=== PATIENT | male | born 1975 | race Caucasian/White ===

== ENCOUNTER → 2018-06-17 | Outpatient (CLI) | payer OTHER ==
[~2018-06-17] VITALS: Ht 182.9 cm; Wt 127.0 kg
[~2018-06-17] MED LIST: VENTOLIN HFA 1818 GM INH; XARELTO20 MG PO
[2018-06-17 14:48] VITALS: BP 11/66
== END | disposition home or self-care (01) ==
LOC: CATH 12:32
PROVIDERS: Nurse Practitioner Gerontology
DX: I87.393 Chronic venous hypertension (idiopathic) with other complications of bilateral lower extremity (principal); I87.2 Venous insufficiency (chronic) (peripheral); J45.909 Unspecified asthma, uncomplicated; Z98.890 Other specified postprocedural states; Z86.718 Personal history of other venous thrombosis and embolism; Z79.01 Long term (current) use of anticoagulants; Z87.891 Personal history of nicotine dependence; Z79.899 Other long term (current) drug therapy

== ENCOUNTER → 2019-03-04 | Outpatient (CLI) | payer OTHER | LOC: ULTRA 09:09 | DX: I82.4Z1 Acute embolism and thrombosis of unspecified deep veins of right distal lower extremity (principal) ==